=== PATIENT | female | born 1950 | race Caucasian/White ===

== ENCOUNTER → 2021-08-26 | Outpatient (REF) ==
[2021-08-26 12:09] LABS: POTASSIUM 3.7 mmol/L (3.5-5.1)
[2021-08-26 12:10] LABS: CALCIUM 9.2 mg/dL (8.3-10.5)
[2021-08-26 12:17] LABS: MAGNESIUM 2.09 mg/dL (1.60-2.60)
== END ==
LOC: LAB 09:27
PROVIDERS: Internal Medicine Cardiovascular Disease
DX: Z01.89 Encounter for other specified special examinations (principal)